=== PATIENT | female | born 1965 ===

== ENCOUNTER 2017-02-27 17:48 | Inpatient (IN) | payer BC, MEDICAID ==
[2017-02-27 17:54] VITALS: BMI 22.0
--- NOTE | 2017-02-27 18:03 | ED PDOC ---
Arrival/HPI - General Chief Complaint: Psychiatric Evaluation Time Seen by Provider: 02/27/17 17:50 Historian: Patient - History of Present Illness Time/Duration: Prior to Arrival Associated Symptoms (Text): 02/27/17 18:01 Patient was seen at another hospital emergency room and medically cleared for a psychiatric admission. Patient abuses alcohol. She is depressed and suicidal. She is aware that she is being admitted to the psychiatric floor and agrees to be admitted. Therefore, no review of systems past medical history or exam is necessary. She is accepted by Dr. Cui. Past Medical History - Infectious Disease Hx of Infectious Diseases: None - Reproductive Menopause: Yes - Cardiac Hx Cardiac Disorders: No Hx Hypertension: No - Pulmonary Hx Tuberculosis: No - Neurological HX Cerebrovascular Accident: No Hx Seizures: No - HEENT Hx HEENT Disorder: No - Renal Hx Renal Disorder: No - Endocrine/Metabolic Hx Endocrine Disorders: No - Hematological/Oncological Hx Cancer: No - Integumentary Hx Dermatological Disorder: No - Musculoskeletal/Rheumatological Hx Musculoskeletal Disorders: Yes Other/Comment: Hx foot surgery - Gastrointestinal Hx Gastrointestinal Disorders: No - Genitourinary/Gynecological Hx Sexually Transmitted Diseases: No - Psychiatric Hx Anxiety: Yes Hx Depression: Yes Hx Substance Use: Yes (denies) - Surgical History Hx Orthopedic Surgery: Yes (foort SX) Other/Comment: "FOOT SURGERIES". "RECONSTRUTION IN MY UTERUS, I HAD A SEPTUM REMOVED". "HERNIA SURGERY" - Anesthesia Hx Anesthesia: Yes Hx Anesthesia Reactions: No Hx Malignant Hyperthermia: No Family/Social History - Physician Review Nursing Documentation Reviewed: Yes Family/Social History: Unknown Family HX Smoking Status: Heavy Smoker > 10 Cigarettes Daily Hx Alcohol Use: Yes Hx Substance Use: Yes (denies) Allergies/Home Meds Allergies/Adverse Reactions: Allergies No Known Allergies Allergy (Verified 02/27/17 09:34) Home Medications: Home Meds Medication Instructions Recorded Confirmed Acetaminophen/Butalbital/Caf 2 tab PO Q6 02/27/17 02/27/17 [Fioricet] DULoxetine [Cymbalta] 30 mg PO DAILY 02/27/17 02/27/17 DULoxetine [Cymbalta] 60 mg PO DAILY 02/27/17 02/27/17 Gabapentin 600 mg PO QID 02/27/17 02/27/17 Metoprolol Tartrate PO DAILY 02/27/17 Physical Exam Vital Signs Temp Pulse Resp BP Pulse Ox 02/27/17 17:54 98.8 F 93 H 20 135/95 H 99 Disposition/Present on Arrival - Present on Arrival Any Indicators Present on Arrival: No History of DVT/PE: No History of Uncontrolled Diabetes: No Urinary Catheter: No History of Decub. Ulcer: No History Surgical Site Infection Following: None - Disposition Have Diagnosis and Disposition been Completed?: Yes Diagnosis: Alcohol abuse, Depression, Major depression, Suicidal ideation Disposition: HOSPITALIZED Disposition Time: 18:03 Patient Plan: Admission Patient Problems: Current Active Problems Problem Status Onset Alcohol abuse Acute Depression Acute Major depression Acute Suicidal ideation Acute Condition: GOOD
[2017-02-27 22:27] VITALS: O2SAT 96
--- NOTE | 2017-02-28 07:26 | PCM.BM ---
<Al Cosby - Last Filed: 02/28/17 07:23> Treatment Plan Problems - Problems identified on initial assessmt Depression Date Initiated: 02/27/17 Time Initiated: 22:30 Assessment reference: NA Status: Active Priority: 1 suicidal ideation Date Initiated: 02/27/17 Assessment reference: NA Status: Active substance abuse Date Initiated: 02/27/17 Assessment reference: NA Status: Active Treatment assets and liabiliti Patient Assests: ADL independent, physically healthy Patient Liabilities: financial problems, substance abuse - Milieu Protocol Maintain good personal hygiene: daily Encourage regular showers, daily Remind patient to perform daily oral care, daily Assist patient to perform ADL's Maintain personal safety: daily Educate patient to report safety concerns to staff, daily Monitor environment for contraband/sharps Medication safety: Monitor for expected outcome, potential side effects: daily, Assess barriers to learning: daily, Assess readiness for medication education: daily Milieu Narrative: * group, milieu and supportive treatment * Awaiting medical consult * Vitals reviewed and noted below: Selected Entries 02/27/17 02/27/17 02/28/17 17:54 22:25 00:54 Temperature 98.8 F 98.7 F Pulse Rate 93 H 74 Respiratory 20 19 18 Rate Blood Pressure 135/95 H 125/77 O2 Sat by Pulse 99 96 Oximetry Family Contact Family involvement: Patient does not wish Family/SO involvement Family contact: Patient declines to allow family contact at present - Goals for Treatment Patient goals for treatment: I wanna get better Discharge/Continuing Care - Education Needs Education Needs: Patient Medication, Patient Diagnosis/Disease Process, Patient Coping Skills - Discharge Discharge Criteria: Tolerates medication w/o severe side effects, Free of Suicidal thoughts, Normal sleep pattern, Ability to care for self - Treatment Team Participation Patient/Family/SO Statement: * group, milieu and supportive treatment * Awaiting medical consult * Vitals reviewed and noted below: Selected Entries 02/27/17 02/27/17 02/28/17 17:54 22:25 00:54 Temperature 98.8 F 98.7 F Pulse Rate 93 H 74 Respiratory 20 19 18 Rate Blood Pressure 135/95 H 125/77 O2 Sat by Pulse 99 96 Oximetry <Barbara Queen - Last Filed: 02/28/17 09:43> - Diagnosis (1) Alcohol abuse Status: Acute (2) Major depression Status: Acute <Jane Ochoa - Last Filed: 03/03/17 08:17> Family Contact Family involvement: Famliy/SO not involved Family contact: Patient declines to allow family contact at present - Goals for Treatment Patient goals for treatment: "I want to get into an outpatient program."
[2017-02-28 07:30] LABS: BLOOD UREA NITROGEN 18 mg/dL (7-21); CALCIUM 9.4 mg/dL (8.4-10.5); CARBON DIOXIDE 24 mmol/L (21-33); CHLORIDE 111 mmol/L (98-107); CHOLESTEROL 206 mg/dL (130-200); GFR AFRICAN-AMERICAN > 60; GLUCOSE,RANDOM 89 mg/dL (70-110); POTASSIUM 3.9 mmol/L (3.6-5.0); SODIUM 143 mmol/L (132-148)
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
[2017-02-28] MEDS ORDERED: Metoprolol Succinate 25 mg XL Tab PO SCH (11:00)
--- NOTE | 2017-02-28 11:49 | CP.PCM.CON ---
<Wilfred Fraser - Last Filed: 02/28/17 12:07> History of Present Illness - History of Present Illness History of Present Illness: Internal Medicine Consult Note CC: Depression HPI: Patient is a 51 year old female with past medical history of HTN, depression who presented to [facility] seeking treatment for depression and alcohol withdrawal. Patient was transferred to [facility] for inpatient psychiatric treatment. Patient denies suicidal ideation or attempt at this time. Patient reports she has a long history of dealing with depression and has sought help a number of times prior to this admission. She reports outside of her mental health she has no complaints. Patient reports her last drink was 2 days ago. She reportedly drinks only 3-4 x week. Patient denies chest pain, shortness of breath, agitation, hallucinations, headache, irregular heart rate, abdominal pain, diarrhea, constipation, nausea, vomiting, fever, chills. PMH: HTN, Depression, Suicide attempts hx alcohol abuse PSH: Right foot surgery SocHx: Tobacco: 0.5 PPD, ETOH: Occasional ID: denies ALL: NKDA Meds: - Cymbalta 90mg Daily - Fioricet 1 Tab - Gabapentin 600mg QID - Trazadone 100mg PO QHS - Revia 50mg Daily Review of Systems - Review of Systems Review of Systems: 12 point ROS benign other than mentioned in HPI Past Patient History - Infectious Disease Hx of Infectious Diseases: None - Past Medical History & Family History Past Medical History?: Yes - Past Social History Smoking Status: Heavy Smoker > 10 Cigarettes Daily Alcohol: Occasional Drugs: Denies - CARDIAC Hx Cardiac Disorders: No Hx Hypertension: No - PULMONARY Hx Tuberculosis: No - NEUROLOGICAL HX Cerebrovascular Accident: No Hx Seizures: No - HEENT Hx HEENT Problems: No - RENAL Hx Chronic Kidney Disease: No - ENDOCRINE/METABOLIC Hx Endocrine Disorders: No - HEMATOLOGICAL/ONCOLOGICAL Hx Cancer: No - INTEGUMENTARY Hx Dermatological Problems: No - MUSCULOSKELETAL/RHEUMATOLOGICAL Hx Musculoskeletal Disorders: Yes Other/Comment: Hx foot surgery - GASTROINTESTINAL Hx Gastrointestinal Disorders: No - GENITOURINARY/GYNECOLOGICAL Hx Sexually Transmitted Disorders: No - PSYCHIATRIC Hx Depression: Yes Hx Substance Use: Yes - SURGICAL HISTORY Hx Orthopedic Surgery: Yes (foort SX) Other/Comment: "FOOT SURGERIES". "RECONSTRUTION IN MY UTERUS, I HAD A SEPTUM REMOVED". "HERNIA SURGERY" - ANESTHESIA Hx Anesthesia: Yes Hx Anesthesia Reactions: No Hx Malignant Hyperthermia: No Meds Allergies/Adverse Reactions: Allergies Allergy/AdvReac Type Severity Reaction Status Date / Time No Known Allergies Allergy Verified 02/27/17 22:04 - Medications Medications: Current Medications Acetaminophen (Tylenol 325mg Tab) 650 mg PO Q6 PRN PRN Reason: Fever >100.4 F Duloxetine HCl (Cymbalta) 90 mg PO DAILY [facility] Last Admin: 02/28/17 10:15 Dose: 90 mg Gabapentin (Neurontin) 100 mg PO TID [facility] PRN Reason: Protocol Lorazepam (Ativan) 1 mg PO Q6 REYES PRN Reason: Protocol Metoprolol Succinate (Toprol Xl) 25 mg PO BRK REYES Trazodone HCl (Desyrel) 50 mg PO HS PRN PRN Reason: Insomnia Physical Exam - Constitutional Appears: Non-toxic, No Acute Distress - Head Exam Head Exam: ATRAUMATIC, NORMAL INSPECTION, NORMOCEPHALIC - Eye Exam Eye Exam: EOMI, PERRL Pupil Exam: PERRL - ENT Exam ENT Exam: Mucous Membranes Dry - Neck Exam Neck exam: Positive for: Full Rom - Respiratory Exam Respiratory Exam: Clear to Auscultation Bilateral, NORMAL BREATHING PATTERN. absent: Rhonchi, Wheezes - Cardiovascular Exam Cardiovascular Exam: REGULAR RHYTHM, +S1, +S2. absent: Systolic Murmur - GI/Abdominal Exam GI & Abdominal Exam: Normal Bowel Sounds, Soft. absent: Distended, Firm, Guarding, Tenderness - Extremities Exam Extremities exam: Positive for: normal capillary refill. Negative for: pedal edema - Back Exam Back exam: NORMAL INSPECTION. absent: paraspinal tenderness, vertebral tenderness - Neurological Exam Neurological exam: Alert, Oriented x3 Additional comments: motor and sensory grossly intact - Psychiatric Exam Psychiatric exam: Depressed - Skin Skin Exam: Dry, Intact, Warm Results - Vital Signs Recent Vital Signs: Last Vital Signs Temp 98.5 F 02/28/17 07:14 Pulse 75 02/28/17 07:14 Resp 16 02/28/17 07:14 BP 138/101 H 02/28/17 07:14 Pulse Ox 96 02/27/17 22:25 - Labs Result Diagrams: 02/28/17 06:50 Labs: Laboratory Results - last 24 hr 02/28/17 06:50 Sodium 143 Potassium 3.9 Chloride 111 H Carbon Dioxide 24 Anion Gap 11 BUN 18 Creatinine 0.4 L Est GFR ( Amer) > 60 Est GFR (Non-Af Amer) > 60 Random Glucose 89 Calcium 9.4 Triglycerides 205 H Cholesterol 206 H LDL Cholesterol Direct 62 HDL Cholesterol 105 H Assessment & Plan (1) Depression Status: Acute (2) Hypertension Status: Chronic - Assessment and Plan (Free Text) Assessment: Patient is a 51 year old female with PMH significant for HTN and depression. Patient is a transfer from [facility] for treatment of her depression. Plan: HTN - BP stable at this time with elevated DBP - Metoprolol 25mg PO daily Depression - Per psych Case and Plan discussed with attending - Date & Time Date: 02/28/17 Time: 11:49 <Molina Heaton - Last Filed: 02/28/17 14:47> Meds - Medications Medications: Current Medications Acetaminophen (Tylenol 325mg Tab) 650 mg PO Q6 PRN PRN Reason: Fever >100.4 F Duloxetine HCl (Cymbalta) 90 mg PO DAILY [facility] Last Admin: 02/28/17 10:15 Dose: 90 mg Gabapentin (Neurontin) 100 mg PO TID REYES PRN Reason: Protocol Last Admin: 02/28/17 12:35 Dose: 100 mg Lorazepam (Ativan) 1 mg PO Q6 REYES PRN Reason: Protocol Last Admin: 02/28/17 12:35 Dose: 1 mg Metoprolol Succinate (Toprol Xl) 25 mg PO BRK REYES Trazodone HCl (Desyrel) 50 mg PO HS PRN PRN Reason: Insomnia Results - Vital Signs Recent Vital Signs: Last Vital Signs Temp 98.5 F 02/28/17 07:14 Pulse 75 02/28/17 07:14 Resp 16 02/28/17 07:14 BP 138/101 H 02/28/17 07:14 Pulse Ox 96 02/27/17 22:25 - Labs Result Diagrams: 02/28/17 06:50 Labs: Laboratory Results - last 24 hr 02/28/17 02/28/17 06:50 06:50 Sodium 143 Potassium 3.9 Chloride 111 H Carbon Dioxide 24 Anion Gap 11 BUN 18 Creatinine 0.4 L Est GFR ( Amer) > 60 Est GFR (Non-Af Amer) > 60 Random Glucose 89 Hemoglobin A1c 5.4 Calcium 9.4 Triglycerides 205 H Cholesterol 206 H LDL Cholesterol Direct 62 HDL Cholesterol 105 H Attending/Attestation - Attestation I have personally seen and examined this patient.: Yes I have fully participated in the care of the patient.: Yes I have reviewed all pertinent clinical information: Yes Notes (Text): 02/28/17 14:45 Patient was seen and examined with medical imaging tech. Agreed with resident assessment and plan. 51 year old female with PMH significant for HTN and depression is admitted with major depression,The is no sign of alcohol withdrawal at this time.We will resume patient metoprolol.There is no active medical issue at this time.We will sign off.Please call us back if any question. Management plan was discussed in detail with patient Education was provided.
[2017-03-01 07:32] VITALS: RESP 17
[2017-03-01] MEDS: Metoprolol Succinate 25 mg XL Tab PO SCH (10:04)
--- NOTE | 2017-03-01 15:40 | PCM.PYCHPN ---
Psychiatric Progress Note - Psychiatric Progress Note Patient seen today, length of contact: 30 minutes Patient Chief Complaint: "I feel much better now, I want to go home" Medical Problems: chronic headaches Diagnostic Results: 02/28/17 06:50 Lab Results 02/28/17 06:50: Hemoglobin A1c 5.4 02/28/17 06:50: Sodium 143, Potassium 3.9, Chloride 111 H, Carbon Dioxide 24, Anion Gap 11, BUN 18, Creatinine 0.4 L, Est GFR ( Amer) > 60, Est GFR ( Non-Af Amer) > 60, Random Glucose 89, Calcium 9.4, Triglycerides 205 H, Cholesterol 206 H, LDL Cholesterol Direct 62, HDL Cholesterol 105 H Vital Signs Temp Pulse Resp BP Pulse Ox 03/01/17 07:30 98.3 F 83 17 135/99 H 02/28/17 16:28 86 143/103 H 02/28/17 07:14 98.5 F 75 16 138/101 H 02/28/17 00:54 18 02/27/17 22:25 98.7 F 74 19 125/77 96 02/27/17 17:54 98.8 F 93 H 20 135/95 H 99 DSM 5 Symptoms Update: as per note: Patient is a 51-year-old female with a history of depression and alcohol dependency, two prior psychiatric hospitalizations at [facility] ( most recently 12/2015), one remote suicide attempt in 1998, compliant with Cymbalta 90 mg daily prescribed by her discharge specialist for the last couple years, who was transferred from [facility]] for treatment of depression and alcohol withdrawal. Patient cannot be treated in [facility]] because her boyfriend was already admitted to the psychiatric unit with the same symptoms. Guarding stressors patient reports he prays hospital staff members that she was going through divorce. Patient submitted 48 hour notice yesterday, refused to rescind it, pt was seen at the tx team meeting. Patient said that she feels much better, denied thoughts of harming herself or others, reported that she was in distress, no explanation why she was feeling this way, patient reported that she reported a bottle off vodka, but she didn't drink, she decided to come to the hospital looking for help for her depressive symptoms. Patient reported that she feels better and at present moment she does not feel that she needs to stay in the hospital. as per collaterals from staff, pt is med compliant, no behavioral incidents, has good appetite and sleep. pt reported that she fills meds in [facility]'s pharmacy [phone] cymbalta 60 mg by mouth daily by Giles, Vera Trazodone 100 mg at the nighttime Giles, Vera Gabapentin 600 mg 4 times a day Giles, Vera fioricet four times a day by Dr.Syed Hutchinson pt does not want to be on naltrexone "i was on it before, but not now" patient smokes, does not want to be on nicotine patch, patient does not want to quit smoking. Patient tolerates medications well, no side effects observed or reported, aims 0 , no EPS. Mental status examination: Patient appears with acceptable personal hygiene, looks older than her chronological age, intermittent eye contact, mood described "I feel better", affect was constricted but reactive, mood congruent, thought process seems to be goal directed, thought content patient denied visual , auditory, tactile hallucinations, denied thoughts of harming herself or others , denied intent or plan, insight and judgment are limited but improving, impulses are well controlled. DSM 5 Diagnosis: Major Depression, Severe, recurrent Alcohol Use Disorder, Severe Treatment Recommendations and Plan of Treatment: pt submitted 48 hr notice yesterday pt most likely will be d/c tomorrow, pt does not meet criteria for [facility] screening group, milieu and supportive treatment Cymbalta 90 mg po daily for depression Trazodone 100 mg HS prn off-label for insomnia Neurontin 600 mg po QID for anxiety/mood control Ativan 1 mg q6 for alcohol withdrawal PRN pt does not want to be on Revia Awaiting medical consult appreciated consultation for discharge plan and social issues Med management Family involvement Follow up on labs Will monitor closely evaluation for d/c planning Pt was educated about risk/benefits and alternatives of medications, coping strategies (safety plan, suicide prevention), relapse prevention, importance of follow up with psychiatrist and therapist, stay away from drugs/alcohol/smoking Medication Change: Yes (meds confirmed by pharmacy) Medical Record Reviewed: Yes Consults ordered or reviewed: medical consult appreciated Goal/Treatment Plan - Goal/Treatment Plan Need for Continued Stay: Remain at risks for inpatient hospitalization, Severe depression anxiety, Discharge may exacerbated symptoms, Severe functional impairment Estimated Date of D/C: 03/02/17 - Smoking Cessation Smoking Cessation Initiated: Yes
[2017-03-02 07:02] VITALS: BP 138/99; PULSE 84; TEMP 97.2
[2017-03-02] MEDS: Metoprolol Succinate 25 mg XL Tab PO SCH (08:39)
[2017-03-02] MEDS ORDERED: Influenza Vaccine 60 mcg/0.5 mL SYR (4YR UP) IM ONE (10:24)
--- NOTE | 2017-03-02 13:34 | PCM.PYCHDC ---
Mental Status Examination - Mental Status Examination Orientation: Person, Place, Situation, Time Memory: Intact Mood: Neutral Affect: Broad (and mood congruent) Speech: Appropriate Attention: WNL Concentration: WNL Association: WNL Fund of Knowledge: WNL Formal Thought Process: No Impairment Description of patient's judgement and insight: Pt has improved insight into mental and medical illness, pt was compliant with medications and unit rules and regulations, pt was going to groups, was calm, cooperative, socially appropriate, no behavioral incidents, no agitation, no aggression. Psychotic Thoughts and Behaviors: Pt denied v/a/t hallucinations, denied paranoid ideations, pt does not appear to be psychotic, and thought process is goal directed. Suicidal Ideation: No Current Homicidal Ideation?: No Plan: pt adamantly denied thoughts of harming self or others denied intent or plan. Discharge Summary - Discharge Note Reason for Hospitalization: depressive symptoms, possible suicidal ideation see initial eval for more detailed information Psychiatric History (includes Medical, Family, Personal Hx): h/o MDD, alcohol use disorder Laboratory Data: 02/28/17 06:50 Lab Results 02/28/17 06:50: Hemoglobin A1c 5.4 02/28/17 06:50: Sodium 143, Potassium 3.9, Chloride 111 H, Carbon Dioxide 24, Anion Gap 11, BUN 18, Creatinine 0.4 L, Est GFR ( Amer) > 60, Est GFR ( Non-Af Amer) > 60, Random Glucose 89, Calcium 9.4, Triglycerides 205 H, Cholesterol 206 H, LDL Cholesterol Direct 62, HDL Cholesterol 105 H Vital Signs Temp Pulse Resp BP Pulse Ox 03/02/17 08:39 84 138/99 H 03/02/17 07:01 97.2 F L 84 17 138/99 H 03/01/17 16:00 102 H 133/93 H 03/01/17 07:30 98.3 F 83 17 135/99 H 02/28/17 16:28 86 143/103 H 02/28/17 07:14 98.5 F 75 16 138/101 H 02/28/17 00:54 18 02/27/17 22:25 98.7 F 74 19 125/77 96 02/27/17 17:54 98.8 F 93 H 20 135/95 H 99 Consultations:: List each consultation separately and include: 1. Reason for request. 2. Findings. 3. Follow-up Consultations: medical consult appreciated Summary of Hospital Course include:: 1. Description of specific treatment plan utilized for patients during their course of treatmen. 2. Summarize the time- course for resolution of acute symptoms and/or regressed behaviors. 3. Describe issues identified and worked on during hospitalization. 4. Describe medication utilized. 5. Describe medical problems identified and treated. 6. Reassessment of suicide risk Summary of Hospital Course: Patient is a 51-year-old female with a history of depression and alcohol dependency, two prior psychiatric hospitalizations at [facility] ( most recently 12/2015), one remote suicide attempt in 1998, compliant with Cymbalta 90 mg daily prescribed by her vascular ultrasound technologist for the last couple years, who was transferred from [facility] for treatment of depression and alcohol withdrawal. Patient cannot be treated in [facility] because her boyfriend was already admitted to the psychiatric unit with the same symptoms. Guarding stressors patient reports he prays hospital staff members that she was going through divorce. Patient submitted 48 hour notice 02/28/17, refused to rescind it, pt did not meet a criteria for screening process, pt reported that she was feeling much better, denied thoughts of harming herself or others, reported that she was in distress prior to come to the hospital, no explanation why she was feeling this way, patient reported that she purchased a bottle off vodka, but she didn't drink, she decided to come to the hospital looking for help for her depressive symptoms. Patient reported that she feels better and at present moment she does not feel that she needs to stay in the hospital. as per collaterals from staff, pt is med compliant, no behavioral incidents, has good appetite and sleep. pt reported that she fills meds in [facility]'s pharmacy [phone] cymbalta 60 mg by mouth daily by Giles, Vera Trazodone 100 mg at the nighttime Giles, Vera Gabapentin 600 mg 4 times a day Giles, Vera fioricet four times a day by Dr.Syed Hutchinson pt reported that she has all meds at home and did not need meds at this time. pt does not want to be on naltrexone "i was on it before, but I don't want it now" patient smokes, does not want to be on nicotine patch, patient does not want to quit smoking. Patient tolerates medications well, no side effects observed or reported, aims 0 , no EPS. Over the course of this hospitalization pt was attending groups, pt also had medication management, had therapeutic milieu. Overall pt improved significantly, pt's affect became brighter, pt was less depressed, has realistic future oriented plans, pt also does not appear to be psychotic, or anxious, pt was socially appropriate, no behavioral issues, pts insight improved as well, pt requested to be discharged. At the time of the discharge pt denied been depressed, denied thoughts of harming self or others, denied psychotic symptoms, and pt does not appeared to be psychotic, denied been anxious, pt is not in imminent danger to self or others, [facility] information about follow up appointment, time and address provided to the pt, it is patient responsibility to follow up with outpatient clinic, PMD as well as specialists (see SW note for more detailed information). In case pt will need to obtain results of studies pending at discharge pt was provided with contact information of Psychiatric Inpatient unit [phone] as well as Medical Record Department [phone]. Nicotine patch was offered, but pt does not want to quit smoking Naltrexone treatment offered but pt does not want to take this medication Counseling about smoking and alcohol cessation provided AA meetings as well as smoking cessation treatment program information was provided by the pt said that she has all of the meds at home Pt was educated about safety plan in case of worsening of symptoms or in case of suicidal or homicidal ideation call 911 or go to the nearest ER, also was educated to take meds as prescribed and stay away from drugs, pt verbalized understanding. - Diagnosis (1) Adjustment disorder Current Visit: Yes Status: Acute (2) Alcohol abuse Current Visit: Yes Status: Acute - Final Diagnosis (DSM 5) Condition upon Discharge: GOOD Disposition: HOME/ ROUTINE Follow-up Treatment Plan: At the time of the discharge pt denied been depressed, denied thoughts of harming self or others, denied psychotic symptoms, and pt does not appeared to be psychotic, denied been anxious, pt is not in imminent danger to self or others, [facility] about follow up appointment, time and address provided to the pt, it is patient responsibility to follow up with outpatient clinic, PMD as well as specialists (see SW note for more detailed information). In case pt will need to obtain results of studies pending at discharge pt was provided with contact information of Psychiatric Inpatient unit [phone] as well as Medical Record Department [phone]. Nicotine patch was offered, but pt does not want to quit smoking Naltrexone treatment offered but pt does not want to take this medication Counseling about smoking and alcohol cessation provided AA meetings as well as smoking cessation treatment program information was provided by the pt said that she has all of the meds at home Pt was educated about safety plan in case of worsening of symptoms or in case of suicidal or homicidal ideation call 911 or go to the nearest ER, also was educated to take meds as prescribed and stay away from drugs, pt verbalized understanding. - Smoking Cessation Smoking Cessation Medication prescribed: No Reason for not providing: pt does not want - Antipsychotic Medications Pt discharged on 2 or more routine antipsychotic medications: No
== END 2017-03-02 13:45 | disposition home or self-care (01) | DRG 885 ==
LOC: ED 17:48 → ERH 17:58 → PSYC 19:07
PROVIDERS: ADMIT Psychiatry & Neurology Psychiatry; ATTEND Psychiatry & Neurology Psychiatry
DX: F33.2 Major depressive disorder, recurrent severe without psychotic features (principal); R45.851 Suicidal ideations; I10 Essential (primary) hypertension; F10.239 Alcohol dependence with withdrawal, unspecified; F17.210 Nicotine dependence, cigarettes, uncomplicated; F43.22 Adjustment disorder with anxiety; G47.00 Insomnia, unspecified; Z79.899 Other long term (current) drug therapy; Z62.810 Personal history of physical and sexual abuse in childhood; Z91.5 Personal history of self-harm; R51 Headache